=== PATIENT | male | born 1995 | race Caucasian/White ===

== ENCOUNTER 2018-08-21 11:20 | Emergency (ER) | payer OTHER ==
[~2018-08-21] VITALS: Ht 167.6 cm; Wt 95.0 kg
[~2018-08-21 11:20] MED LIST: CLON-379 PO; METH54TA4 PO
[2018-08-21 11:24] VITALS: Ht 167.6 cm; Wt 95.0 kg
[2018-08-21] MEDS ORDERED: CARB-155 BOTH EARS (13:24)
--- NOTE | 2018-08-21 13:25 | ERD ---
ER Documentation Chief Complaint Chief Complaint LT EAR PAIN , ONSET LAST NIGHT , STUFFY NOSE X FEW DAYS HPI 22-year-old male no significant past medical history presents for left ear pain x1 day. He states he been having cough for about 3 days and runny nose. He does have decreased hearing. He states that he has 10 out of 10 pain described as sharp. He currently states that the pain is dull. He has been trying Tylenol and homeopathic eardrops with mild relief. Denies fevers or chills. Denies chest pain or shortness of breath. No other modifying factors noted, no other treatment tried at home. ROS All systems reviewed and are negative except as per history of present illness. Medications Home Meds Active Scripts Carbamide Peroxide* (Debrox*) 6.5% -15 Ml Drops, 10 DROP BOTH EARS BID for cerumen impaction for 4 Days, #1 BOTTLE Prov:MICHAEL SALDANA DO 08/21/18 Reported Medications Methylphenidate HCl (Concerta) 54 Mg Tab.er.24, 54 MG PO QAM, TAB 01/01/16 Clonidine Hcl* (Clonidine Hcl*) 0.1 Mg Tab, 0.1 MG PO DAILY, TAB 01/01/16 Allergies Allergies: Coded Allergies: amoxicillin (Unverified Allergy, Unknown, 08/21/18) PMhx/Soc Medical and Surgical Hx: pt denies Surgical Hx History of Surgery: No Anesthesia Reaction: No Hx Neurological Disorder: No Hx Respiratory Disorders: No Hx Cardiac Disorders: No Hx Miscellaneous Medical Probl: No Hx Alcohol Use: No Hx Substance Use: Yes (MARIJUANA) Hx Tobacco Use: No FmHx Family History: No coronary disease Physical Exam Vitals Vital Signs Date Temp Pulse Resp B/P (MAP) Pulse Ox O2 O2 Flow FiO2 Time Delivery Rate 08/21/18 99.1 83 18 138/95 99 11:24 (109) Physical Exam Const: No acute distress Head: Atraumatic Eyes: Normal Conjunctiva ENT: Bilateral ear canal with cerumen impaction noted, Nose and Mouth examination normal. Neck: Full range of motion. No meningismus. Resp: Clear to auscultation bilaterally Cardio: Regular rate and rhythm, no murmurs Skin: No petechiae or rashes Ext: No cyanosis, or edema Neur: Awake and alert Psych: Normal Mood and Affect Procedures/MDM Procedure note Cerumen impaction irrigation Irrigation was able to remove some cerumen however there is still impaction noted on reexamination Attempts were made to remove with alligator forceps large amounts were able to be removed from both ears however remains some cerumen impacted bilateral ear canal. Patient tolerated the procedure well Medical Decision Making: Differential diagnosis includes but not limited to cerumen impaction, otitis me kacie, otitis externa, labyrinthitis Patient appeared well on physical exam. Bilateral ear cerumen impaction noted. Irrigation and attempts at removal were tried, see procedure note above There is some cerumen in the bilateral ear canals after attempted irrigation and manual removal. Patient symptoms did improve after the procedure. Patient given prescription for Debrox. Advised to follow with primary care physician, possible need for referral to ENT if symptoms do not improve. Patient agreed with care plan. Advised to take OTC pain medications as needed. Prescription(s): Patient given prescription for supportive medication(s). Patient advised to follow up with PCP in 1-2 days. Patient advised to return to ED for new or worsening symptoms. Patient stable on discharge from the ED. Disclaimer: Inadvertent spelling and grammatical errors are likely due to EHR/dictation software use and do not reflect on the overall quality of patient care. Also, please note that the electronic time recorded on this note does not necessarily reflect the actual time of the patient encounter. Departure Diagnosis: Primary Impression: Cerumen impaction Laterality: bilateral Qualified Codes: H61.23 - Impacted cerumen, bilateral Condition: Fair Patient Instructions: Cerumen Impaction, Home Care Additional Instructions: Call your primary care doctor TOMORROW for an appointment during the next 1-2 days.See the doctor sooner or return here if your condition worsens before your appointment time. Follow up with PCP, may need referral to ENT if symptoms do not improve MICHAEL SALDANA DO Aug 21, 2018 13:25
[2018-08-21 13:34] VITALS: BP 132/96; PULSE 60; RESP 18
== END 2018-08-21 13:35 | disposition home or self-care (01) ==
LOC: FTE 11:20
DX: H61.23 Impacted cerumen, bilateral (principal)
CPT/HCPCS: 69209; Z7502